=== PATIENT | female | born 1945 | race Caucasian/White ===

== ENCOUNTER 2023-06-30 10:11 | Outpatient (AMB) | payer MEDICARE, SELFPAY ==
--- NOTE | 2023-06-30 10:22 | A.OFFVIS_ITS ---
Intake Vital Signs 06/30/23 10:25 Height 5 ft 6 in Weight 170 lb BMI 27.4 BP 160/70 H Blood Pressure Location Rt brachial Position Sitting Respiration 12 Pulse 94 Pulse Source Pulse Oximeter Pulse Oximetry (%) 98 Oxygen Delivery Method Room Air Intake Visit Reasons: ramón shoulder pain/confirmed Allergies nitroglycerin [Nitroglycerin] Adverse Reaction (Mild, Verified 06/30/23 10:27) RASH (PATCH ONLY) Medication List - Last Reconciled 06/30/23 by Rosa Burnette LPN aspirin (Adult Aspirin Regimen) 81 mg PO DAILY gabapentin 300 mg PO DAILY isosorbide mononitrate 20 mg PO BID levothyroxine 75 mcg PO DAILY lisinopril 5 mg PO DAILY nortriptyline 10 mg PO BEDTIME oxybutynin chloride ER 10 mg PO DAILY pantoprazole 40 mg PO DAILY HPI ramón shoulder pain/confirmed HPI Details 77-year-old female who presents today to the office for an evaluation of bilateral shoulder pain. The patient reports right shoulder pain that started a few months ago. Her pain started in August 2022. It is rated at 7-8/10 in intensity. It is described as an aching, stabbing sensation. She is able to lift her arm with assistance from the other hand up above her head, but then has to use her left arm to bring her right arm down because of excruciating pain. It is exacerbated by ROM in all planes. She denies any limited ROM, but the pain is severe. The pain is localized to the lateral aspect of the shoulder. She continues to have intractable pain in her right shoulder that is interfering with her activities of daily living. She states that she had the same symptom in the past, which was treated by physical therapy. She has been managing her symptoms with rest and activity modifications. She is taking gabapentin once per day with minimal benefit. She visited a clinic on [facility] and received a cortisone injection with minimal benefit, but then her pain symptoms came back. Her last cortisone injection was about two weeks ago.? She is living alone. 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 [facility] Medical History (Updated 07/06/23 @ 15:37 by Kevin Ledesma MD) Asthma Esophageal reflux HTN (hypertension) History of colonic polyps Other vitamin B12 deficiency anemias Sepsis, unspecified organism Diabetes mellitus with neuropathy Hyperlipidemia, unspecified Controlled diabetes mellitus with neurologic complication Unspecified urinary incontinence Contracture of joint of hand Dupuytren's disease Age-related osteoporosis without current pathological fracture Type 2 diabetes mellitus with renal manifestations Atypical chest pain Microalbuminuria CKD (chronic kidney disease) stage 3, GFR 30-59 ml/min Hypothyroidism Ankle fracture Review of Systems Const All systems reviewed & are unremarkable except as noted in HPI and below Physical Exam Vital Signs: Last Vital Signs Pulse 94 06/30/23 10:25 Resp 12 06/30/23 10:25 BP 160/70 H 06/30/23 10:25 Pulse Ox 98 06/30/23 10:25 Oxygen Delivery Method Room Air 06/30/23 10:25 BMI result Body Mass Index 27.4 General: Appears afebrile. Alert and oriented. Mood and affect appropriate. Follows and participates in conversation appropriately. Respiratory effort is unlabored. Able to transition from sit to stand unassisted. Ambulates with bilaterally normal heel strike and toe off. Limited shoulder range of motion. Results Reviewed Results Reviewed: No imaging is available for review. Assessment & Plan Assessment & Plan (1) Chronic right shoulder pain: Code(s): M25.511 - Pain in right shoulder; G89.29 - Other chronic pain Plan We will schedule her for a trial of right suprascapular nerve stimulator placement. Discussed the risks and benefits of the procedure with the patient in detail. All questions were answered. The patient is on board with the plan. Justification for interventional therapy: ? Patient with average pain > 6/10 ? Patient has exhausted conservative therapy corticosteroid injection and physical therapy with limited relief. ? Patient unable to tolerate physical therapy due to pain Scribed for Dr. Ledesma by Nishatn Mcclellan, medical administrative technician, on 06/30/2023. I, Dr. Ledesma, have personally reviewed and agree with the information entered by the scribe. Coding Level of Care Code New Pt Level 4 (94595) Diagnoses Chronic right shoulder pain M25.511; G89.29
[2023-06-30 10:25] VITALS: BP 160/70; PULSE 94; RESP 12; O2SAT 98; BMI 27.4
== END 2023-06-30 11:56 | disposition home or self-care (01) ==
PROVIDERS: PCP Internal Medicine; Visit Provider Internal Medicine
DX: M25.511 Pain in right shoulder (principal); G89.29 Other chronic pain
CPT/HCPCS: 99204

== ENCOUNTER → 2023-06-30 10:11 | Outpatient (BNVA) | payer MEDICARE, SELFPAY | PROVIDERS: PCP Internal Medicine; Visit Provider Internal Medicine | DX: M25.511 Pain in right shoulder (principal); G89.29 Other chronic pain | CPT/HCPCS: 99202 ==

== ENCOUNTER 2023-07-20 06:11 | Outpatient (REF) | payer MEDICARE, SELFPAY | END 2023-07-20 06:12 | disposition home or self-care (01) | LOC: CF 06:11 | PROVIDERS: Visit Provider Internal Medicine | DX: M25.511 Pain in right shoulder (principal); G89.29 Other chronic pain | CPT/HCPCS: 64555; C1778 ==

== ENCOUNTER 2023-07-20 11:10 | Outpatient (AMB) | payer MEDICARE, SELFPAY ==
[2023-07-20 11:25] VITALS: BP 144/80; PULSE 70; RESP 20; O2SAT 97; BMI 27.4
--- NOTE | 2023-07-20 11:25 | A.OFFVIS_ITS ---
Intake Vital Signs 07/20/23 11:25 07/20/23 12:20 Height 5 ft 6 in Weight 170 lb BMI 27.4 BP 144/80 H 138/86 Blood Pressure Location Lt brachial Lt brachial Position Sitting Sitting Respiration 20 18 Pulse 70 84 Pulse Source Pulse Oximeter Pulse Oximeter Pulse Oximetry (%) 97 96 Oxygen Delivery Method Room Air Room Air Comment Pre-Op Post-Op Intake Visit Reasons: Right suprascapular Sprint Allergies nitroglycerin [Nitroglycerin] Adverse Reaction (Mild, Verified 06/30/23 10:27) RASH (PATCH ONLY) HPI Right suprascapular Sprint HPI Details Patient presents for scheduled procedure. Denies any recent cough, cold, infection, fever or other significant changes in medical history since last office visit. [facility] Medical History (Updated 07/06/23 @ 15:37 by Kevin Ledesma MD) Asthma Esophageal reflux HTN (hypertension) History of colonic polyps Other vitamin B12 deficiency anemias Sepsis, unspecified organism Diabetes mellitus with neuropathy Hyperlipidemia, unspecified Controlled diabetes mellitus with neurologic complication Unspecified urinary incontinence Contracture of joint of hand Dupuytren's disease Age-related osteoporosis without current pathological fracture Type 2 diabetes mellitus with renal manifestations Atypical chest pain Microalbuminuria CKD (chronic kidney disease) stage 3, GFR 30-59 ml/min Hypothyroidism Ankle fracture Physical Exam Vital Signs: Last Vital Signs Pulse 84 07/20/23 12:20 Resp 18 07/20/23 12:20 BP 138/86 07/20/23 12:20 Pulse Ox 96 07/20/23 12:20 Oxygen Delivery Method Room Air 07/20/23 12:20 BMI result Body Mass Index 27.4 Office Procedures Details: Peripheral Nerve Stimulation Temporary Lead Placement, Ultrasound-Guided, Suprascapular Nerve, Right ? After the risks, benefits and alternatives were discussed with the patient and informed consent was obtained, patient was placed in the sitting position and padded to foster comfort. Appropriate skin and bony landmarks were identified u sing ultrasound, including the left suprascapular notch. The skin overlying the needle entry site was prepped and draped in sterile fashion. After identifying and marking the intended target along the course of the suprascapular nerve, the skin around the planned entry point and the subcutaneous tissues were injected with local anesthetic. An introducer needle and stimulating probe were assembled, inserted and advanced along the intended course of the suprascapular nerve, taking care to maintain the proper depth of insertion as the introducer was advanced under ultrasound guidance. Bony contact was achieved with the scapula and maintained throughout. The introducer needle was delivered to a location in proximity to the nerve. Multiple stimulation parameters were used to deliver stimulation to the suprascapular nerve in concert with stimulating at multiple positions around the nerve. Nerve target acquisition was confirmed noting generation of sensory and mild motor effects (paresthesia, muscle tension, etc) in the shoulder and proximal arm; corresponding to the distribution of the suprascapular nerve. Various electrical parameter combinations were tested, and the lead location was adjusted (physically relocated under image guidance) until the patient indicated shoulder paresthesia and tension overlapping the distribution of the patient?s typical region of pain. The stimulating probe was removed from the introducer and a percutaneous lead was guided through the needle and delivered to a location in similar proximity to the nerve. Final location was verified with electrical stimulation and documented. The introducer needle was removed, and the exposed end of the percutaneous lead was attached to an external stimulator unit. Various electrical parameter combinations were again tested until the patient indicated paresthesia and muscle tension overlapping the distribution of the patient?s typical region of pain. After confirming that lead impedance was in the normal range, the external unit was detached, the needle was removed, and the lead was anchored at the skin. The needle entry site was occluded with dermabond. The lead was threaded into the connector block and electrical continuity and desired patient response was confirmed. The connector block was attached to the external stimulator unit. The site was covered with a sterile occlusive dressing.? A final image was taken to document final placement. The patient was observed for stability of vital signs and comfort. Sprint PNS Device: Sprint PNS Device [id number] Percutaneous Peripheral Neuroelectrode Procedure: 52717 - Percutaneous Peripheral Neuroelectrode Procedure code (CPT) selection complete Office Meds lidocaine (PF) 50 mg/5 mL (1 %) injection syringe Performing Provider: SHAHZAD Love Performing Location: [facility] Administered by: Rosa Burnette LPN on 07/20/23 12:00 Dose Route Admin Location Dispensed Lot Number Expiration Date NDC Quantitative Software Engineer 5 mL subcut 5 mL Assessment & Plan Assessment & Plan (1) Chronic right shoulder pain: Code(s): M25.511 - Pain in right shoulder; G89.29 - Other chronic pain Plan Patient is status post temporary right suprascapular nerve stimulator placement. Patient tolerated procedure well and was discharged home in stable condition with discharge instructions. All questions were answered. We will follow-up via telephone or in clinic to assess response to therapy. A follow-up appointment was made during today's visit. Orders: Orders AMB Sprint PNS Today G89.29 - Other chronic pain, M25.511 - Pain in right shoulder SHAHZAD Love US guide needle placement Today G89.29 - Other chronic pain, M25.511 - Pain in right shoulder Kevin Ledesma MD Coding Level of Care Code Procedure Only Diagnoses Chronic right shoulder pain M25.511; G89.29 CPT Codes Sprint PNS - Sprint PNS Device: Sprint PNS Device ([id number]) Sprint PNS - SPRINT: 20114 - Percutaneous Peripheral Neuroelectrode ([id number]) Implantable Device Implantable Device Implantable Devices Qty Quantitative Software Engineer Implant Date Expiration Date Analgesic PENS system 1 [employer] 07/20/23 11/09/24
[2023-07-20 12:20] VITALS: BP 138/86; PULSE 84; RESP 18; O2SAT 96
== END 2023-07-20 12:57 | disposition home or self-care (01) ==
LOC: HO.PMCPRC 11:10
PROVIDERS: PCP Internal Medicine; Visit Provider Internal Medicine
DX: M25.511 Pain in right shoulder (principal); G89.29 Other chronic pain
CPT/HCPCS: 64555

== ENCOUNTER 2023-07-28 09:07 | Outpatient (AMB) | payer MEDICARE, SELFPAY ==
--- NOTE | 2023-07-28 09:10 | MHC.OFFVIS ---
Intake Vital Signs 07/28/23 09:11 Height 5 ft 6 in BP 153/71 H Blood Pressure Location Lt brachial Position Sitting Respiration 12 Pulse 81 Pulse Source Pulse Oximeter Pulse Oximetry (%) 100 Oxygen Delivery Method Room Air Intake Visit Reasons: s/p right suprascapular Sprint Allergies nitroglycerin [Nitroglycerin] Adverse Reaction (Mild, Verified 07/28/23 09:12) RASH (PATCH ONLY) Medication List - Last Reconciled 07/28/23 by Rosa Burnette LPN aspirin (Adult Aspirin Regimen) 81 mg PO DAILY gabapentin 300 mg PO DAILY isosorbide mononitrate 20 mg PO BID levothyroxine 75 mcg PO DAILY lisinopril 5 mg PO DAILY nortriptyline 10 mg PO BEDTIME oxybutynin chloride ER 10 mg PO DAILY pantoprazole 40 mg PO DAILY HPI s/p right suprascapular Sprint HPI Details 77-year-old female who presents today to the office for a status post right suprascapular sprint. The patient reports excellent relief following the procedure. She denies having any pain symptoms. The device setting is 68?69, and she is tolerating it well. She denies having an appropriate paresthesia sensation from the device. The patient states that after the shower last night, her device started to come off. She states that she noticed a burning sensation on the skin when the battery came into contact with it. Past procedures: 07/20/23: Peripheral Nerve Stimulation Temporary Lead Placement, Ultrasound-Guided, Suprascapular Nerve, Right: Excellent initial relief. [facility] Medical History (Updated 07/06/23 @ 15:37 by Kevin Ledesma MD) Asthma Esophageal reflux HTN (hypertension) History of colonic polyps Other vitamin B12 deficiency anemias Sepsis, unspecified organism Diabetes mellitus with neuropathy Hyperlipidemia, unspecified Controlled diabetes mellitus with neurologic complication Unspecified urinary incontinence Contracture of joint of hand Dupuytren's disease Age-related osteoporosis without current pathological fracture Type 2 diabetes mellitus with renal manifestations Atypical chest pain Microalbuminuria CKD (chronic kidney disease) stage 3, GFR 30-59 ml/min Hypothyroidism Ankle fracture Review of Systems Const All systems reviewed & are unremarkable except as noted in HPI and below Physical Exam Vital Signs: Last Vital Signs Pulse 81 07/28/23 09:11 Resp 12 07/28/23 09:11 BP 153/71 H 07/28/23 09:11 Pulse Ox 100 07/28/23 09:11 Oxygen Delivery Method Room Air 07/28/23 09:11 General: Appears afebrile. Alert and oriented. Mood and affect appropriate. Follows and participates in conversation appropriately. Respiratory effort is unlabored. Able to transition from sit to stand unassisted. Ambulates with bilaterally normal heel strike and toe off. Lead insertion site is clean dry and intact. Results Reviewed Results Reviewed: No imaging is available for review. Assessment & Plan Assessment & Plan (1) Chronic right shoulder pain: Code(s): M25.511 - Pain in right shoulder; G89.29 - Other chronic pain Plan The patient will continue the stimulation therapy. The patient will follow up in seven weeks for the removal of the sprint. Scribed for Dr. Ledesma by Nishant Mcclellan, product manager medical device, on 07/28/2023. I, Dr. Ledesma, have personally reviewed and agree with the information entered by the scribe. Coding Level of Care Code Est Pt Level 3 (07853) Diagnoses Chronic right shoulder pain M25.511; G89.29
[2023-07-28 09:11] VITALS: BP 153/71; PULSE 81; RESP 12; O2SAT 100
== END 2023-07-28 09:26 | disposition home or self-care (01) ==
PROVIDERS: PCP Internal Medicine; Visit Provider Internal Medicine
DX: M25.511 Pain in right shoulder (principal); G89.29 Other chronic pain
CPT/HCPCS: 99024

== ENCOUNTER → 2023-07-28 09:07 | Outpatient (BNVA) | payer MEDICARE, SELFPAY | PROVIDERS: PCP Internal Medicine; Visit Provider Internal Medicine | DX: M25.511 Pain in right shoulder (principal); G89.29 Other chronic pain | CPT/HCPCS: 99212 ==

== ENCOUNTER 2023-09-15 08:47 | Outpatient (AMB) | payer MEDICARE, SELFPAY ==
--- NOTE | 2023-09-15 08:59 | A.OFFVIS_ITS ---
Vital Signs 09/15/23 09:01 Height 5 ft 6 in Weight 174 lb BMI 28.1 BP 110/59 L Blood Pressure Location Lt brachial Position Sitting Respiration 14 Pulse 90 Pulse Source Pulse Oximeter Pulse Oximetry (%) 98 Oxygen Delivery Method Room Air Intake Visit Reasons: Sprint removal Allergies nitroglycerin [Nitroglycerin] Adverse Reaction (Mild, Verified 09/15/23 09:02) RASH (PATCH ONLY) Medication List - Last Reconciled 09/15/23 by Rosa Burnette LPN aspirin (Adult Aspirin Regimen) 81 mg PO DAILY gabapentin 300 mg PO DAILY isosorbide mononitrate 20 mg PO BID levothyroxine 75 mcg PO DAILY lisinopril 5 mg PO DAILY nortriptyline 10 mg PO BEDTIME oxybutynin chloride ER 10 mg PO DAILY pantoprazole 40 mg PO DAILY HPI HPI Sprint removal: Details: 77-year-old female who presents today to the office for a sprint removal. The patient reports 90 % relief following the procedure that is ongoing. She is overall doing well. She reports a crackling sound with movements in her arm. She has been avoiding heavy lifting at home. She is taking OTC medication for arthritis as needed. Past procedures: 07/20/23: Peripheral Nerve Stimulation Temporary Lead Placement, Ultrasound- Guided, Suprascapular Nerve, Right: 90% relief. [facility] Medical History (Updated 07/06/23 @ 15:37 by Kevin Ledesma MD) Asthma Esophageal reflux HTN (hypertension) History of colonic polyps Other vitamin B12 deficiency anemias Sepsis, unspecified organism Diabetes mellitus with neuropathy Hyperlipidemia, unspecified Controlled diabetes mellitus with neurologic complication Unspecified urinary incontinence Contracture of joint of hand Dupuytren's disease Age-related osteoporosis without current pathological fracture Type 2 diabetes mellitus with renal manifestations Atypical chest pain Microalbuminuria CKD (chronic kidney disease) stage 3, GFR 30-59 ml/min Hypothyroidism Ankle fracture Review of Systems Const All systems reviewed & are unremarkable except as noted in HPI and below Physical Exam Vital Signs: Last Vital Signs Pulse 90 09/15/23 09:01 Resp 14 09/15/23 09:01 BP 110/59 L 09/15/23 09:01 Pulse Ox 98 09/15/23 09:01 Oxygen Delivery Method Room Air 09/15/23 09:01 BMI result Body Mass Index 28.1 General: Appears afebrile. Alert and oriented. Mood and affect appropriate. Follows and participates in conversation appropriately. Respiratory effort is unlabored. Able to transition from sit to stand unassisted. Ambulates with bilaterally normal heel strike and toe off. Lead removed with tip intact. Results Reviewed Results Reviewed: No imaging is available for review. Assessment & Plan Assessment & Plan (1) Chronic right shoulder pain: Code(s): M25.511 - Pain in right shoulder; G89.29 - Other chronic pain Category: Medical Plan The sprint device was removed today in the office. The patient will follow up as needed when her pain starts to return or becomes bothersome. I counseled her to minimize her NSAID intake to prevent renal and gastrointestinal adverse effects. She may take it as needed. Patient expressed understanding. Scribed for Dr. Ledesma by Nishant Mcclellan, medical practice manager, on 09/15/2023. I, Dr. Ledesma, have personally reviewed and agree with the information entered by the scribe. Coding Level of Care Code Est Pt Level 3 (75288) Diagnoses Chronic right shoulder pain M25.511; G89.29
[2023-09-15 09:01] VITALS: BP 110/59; PULSE 90; RESP 14; O2SAT 98; BMI 28.1
== END 2023-09-15 09:18 | disposition home or self-care (01) ==
PROVIDERS: PCP Internal Medicine; Visit Provider Internal Medicine
DX: M25.511 Pain in right shoulder (principal); G89.29 Other chronic pain
CPT/HCPCS: 99213

== ENCOUNTER → 2023-09-15 08:47 | Outpatient (BNVA) | payer MEDICARE, SELFPAY | PROVIDERS: PCP Internal Medicine; Visit Provider Internal Medicine | DX: G89.29 Other chronic pain (principal); M25.511 Pain in right shoulder | CPT/HCPCS: 99212 ==

== ENCOUNTER 2024-06-16 20:12 | Emergency (ER) | payer MEDICARE, SELFPAY ==
[2024-06-16 20:19] VITALS: BP 148/80; PULSE 78; O2SAT 100
[2024-06-16 20:22] VITALS: BP 156/63; PULSE 88; RESP 20; TEMP 36.7; O2SAT 98; BMI 28.8
--- NOTE | 2024-06-16 20:27 | MHC.EDTECH ---
at this time this tech changed over into hospital gown and placed on continuos o2 monitor
--- NOTE | 2024-06-16 21:00 | PC.NURSE ---
pt was coughing and clear sputim she was coughing up and when this rn suctioned pt mouth the steak came out. pt talking in full sentences. vitals stable. provider made aware.
--- NOTE | 2024-06-16 21:34 | ED_ITS ---
HPI - General Adult General Chief complaint: General Medical Stated complaint: choke on a pieve of meat still in esophagus Time Seen by Provider: 06/16/24 21:23 Source: patient, family and EMS Mode of arrival: EMS Limitations: no limitations History of Present Illness ED Provider: Dr. Beba Aponte HPI narrative: Patient comes to the emergency room via ambulance complaining of an esophageal foreign body sensation. Patient states that she was eating meat, she was not wearing her dentures, swallow a large piece of meat and believes it stopped now. Patient denies any trouble breathing. Patient states that she can feel it Related Data Home Medications ?Medication ?Instructions ?Recorded ?Confirmed aspirin 81 mg tablet,delayed 81 mg PO DAILY 06/30/23 09/15/23 release (Adult Aspirin Regimen) gabapentin 300 mg capsule 300 mg PO DAILY 06/30/23 09/15/23 isosorbide mononitrate 20 mg tablet 20 mg PO BID 06/30/23 09/15/23 levothyroxine 75 mcg tablet 75 mcg PO DAILY 06/30/23 09/15/23 lisinopril 5 mg tablet 5 mg PO DAILY 06/30/23 09/15/23 nortriptyline 10 mg capsule 10 mg PO BEDTIME 06/30/23 09/15/23 oxybutynin chloride 10 mg 10 mg PO DAILY 06/30/23 09/15/23 tablet,extended release 24 hr pantoprazole 40 mg tablet,delayed 40 mg PO DAILY 06/30/23 09/15/23 release Allergies Allergy/AdvReac Type Severity Reaction Status Date / Time nitroglycerin [Nitroglycerin] AdvReac Mild RASH Verified 06/16/24 20:25 (PATCH ONLY) Review of Systems Review of Systems: Constitutional : No Weight loss, No Fever, No Chills, No Night Sweats, No Fatigue, No Malaise ENT/Mouth : No Hearing loss, No Ear Pain, No Nasal Congestion, No Sinus Pain, No Hoarseness, No sore throat, No Rhinorrhea, No Swallowing Difficulty Eyes: No Eye Pain, No Swelling, No Redness, No Foreign Body, No Discharge, No Vision Changes Cardiovascular : No Chest Pain, No SOB, No Dyspnea on Exertion, No Orthopnea, No Edema, No Palpitations Respiratory : No Cough, No Sputum, No Wheezing, No Smoke Exposure, No Dyspnea Gastrointestinal : Esophageal foreign body sensation, No Nausea, No Vomiting, No Diarrhea, No Constipation, No abdominal Pain, No Hematochezia, No Melena Genitourinary : no irregular bleeding, No Dysuria, No Urinary Frequency, No Hematuria, No Urinary Incontinence, No Urgency, No Flank Pain, No Urinary Flow Changes, No Hesitancy Musculoskeletal : No joint pain, No Myalgias, No Joint Swelling Skin : No Skin Lesions, No rash Neuro : No Weakness, No Numbness, No Paresthesias, No Loss of Consciousness, No Dizziness, No Headache Psych : No Anxiety/Panic, No Depression, No SI/HI/AH/VH, No Social Issues, Heme/Lymph: No Bruising, No Bleeding,No Lymphadenopathy Endocrine : No Polyuria, No Polydipsia, No Temperature Intolerance [facility] Past Medical History Medical History Asthma Esophageal reflux HTN (hypertension) History of colonic polyps Other vitamin B12 deficiency anemias Sepsis, unspecified organism Diabetes mellitus with neuropathy Hyperlipidemia, unspecified Controlled diabetes mellitus with neurologic complication Unspecified urinary incontinence Contracture of joint of hand Dupuytren's disease Age-related osteoporosis without current pathological fracture Type 2 diabetes mellitus with renal manifestations Atypical chest pain Microalbuminuria CKD (chronic kidney disease) stage 3, GFR 30-59 ml/min Hypothyroidism Ankle fracture Social History Social History Alcohol intake: never Smoked in Last 30 Days: No Use of substances other than those prescribed or required for medical reasons: No Any prior treatment program specific to substance use: No Advance Directives: No Advance Directives Information Provided: Yes Do you have a plan to hurt others: No Plan Physical Exam ED Vital Signs: Vital Signs - 24 hr 06/16/24 20:22 Temperature 98.1 F Pulse Rate 88 Respiratory Rate 20 Blood Pressure 156/63 H Pulse Oximetry 98 Oxygen Delivery Method Room Air BMI result Body Mass Index 28.8 Const Other: Appearance: Alert. Oriented X3. No acute distress. Eyes: Pupils equal, round and reactive to light. ENT: Pharynx normal. Neck: Normal inspection. Neck supple. No lymph nodes noted. No crepitus CVS: Normal heart rate and rhythm. Pulses normal. Normal S1 and S2 Respiratory: No respiratory distress. Breath sounds normal. No Wheezing. No rales Abdomen: Soft and nontender. No rigidity. No distention. Skin: Skin warm and dry. Normal skin color. Normal skin turgor. Extremities: No lower extremity edema. No Lacerations. No Rash Neuro: Oriented X 3. No motor deficit. No sensory deficit. Moving all extremities. No slurred speech. CN 2 through 12 grossly intact Psych: calm, cooperative, normal affect Medical Decision Making Medical Decision Making MDM Narrative: Patient tried swallowing some water, she could not, started coughing. While she was coughing, she said that the piece of meat was starting to come up. Patient's nurse gently suction her, a large chunk of teriyaki meat was removed. Patient states in the longer has a foreign body sensation, speaking full sentences. Patient was p.o. challenged and was able to swallow completely normal. patient states that she feels back to normal. Aspiration is not suspected. Discharge Plan Discharge Clinical Impression: Esophageal foreign body Patient Disposition: Home, Self-Care Instructions: Esophageal Foreign Body (ED) Additional Instructions: Please make sure that you wear your dentures when you eat. Please follow-up with your primary care physician tomorrow. If you have any worsening or new symptoms, please return to the emergency room or call 911 Prescriptions: No Action gabapentin 300 mg capsule 300 mg PO DAILY lisinopril 5 mg tablet 5 mg PO DAILY nortriptyline 10 mg capsule 10 mg PO BEDTIME pantoprazole 40 mg tablet,delayed release (DR/EC) 40 mg PO DAILY levothyroxine 75 mcg tablet 75 mcg PO DAILY isosorbide mononitrate 20 mg tablet 20 mg PO BID oxybutynin chloride 10 mg tablet extended release 24hr 10 mg PO DAILY aspirin [Adult Aspirin Regimen] 81 mg tablet,delayed release (DR/EC) 81 mg PO DAILY Print Language: Samoan
[2024-06-16 21:40] VITALS: BP 163/60; PULSE 80; RESP 16; TEMP 36.4; O2SAT 97
--- NOTE | 2024-06-16 21:47 | PC.NURSE ---
swallow eval done at bedside with provider present and pt passed. no difficulty talking in full sentences. skin pink warm and dry. son at bedside. pt feels ready for discharge.
[2024-06-16 21:48] VITALS: BP 163/60; PULSE 80; RESP 16; TEMP 36.4; O2SAT 97
== END 2024-06-16 21:50 | disposition home or self-care (01) ==
PROVIDERS: Emergency Provider Emergency Medicine; PCP Internal Medicine
DX: T18.128A Food in esophagus causing other injury, initial encounter (principal); W44.F3XA Food entering into or through a natural orifice, initial encounter; Y93.9 Activity, unspecified; Y92.9 Unspecified place or not applicable; Y99.8 Other external cause status
CPT/HCPCS: 42809; 99284